=== PATIENT | female | born 1970 | race African-American/Black ===

== ENCOUNTER 2018-04-08 13:23 | Inpatient (IN) | payer MEDICAID ==
[~2018-04-08] VITALS: Ht 149.9 cm; Wt 51.4 kg
[2018-04-08 15:22] LABS: BASOPHILS % 1.1 % (0.0-2.0); EOSINOPHILS % 1.9 % (0.0-5.0); LYMPHOCYTES % 10.8 % (20.0-50.0); MEAN CORPUSCULAR VOLUME 96.3 fL (81.0-99.0); MEAN PLATELET VOLUME 7.4 fl (7.4-10.4); MONOCYTES % 7.6 % (2.0-8.0); NEUTROPHILS % 78.6 % (40.0-76.0); PLATELET 238 x1000/uL (130-400); RED BLOOD CELL COUNT 3.12 mill/uL (4.2-5.4)
[2018-04-08 15:28] LABS: CHLORIDE 110 mEq/L (98-107); INR 1.1; PROTHROMBIN TIME 11.1 sec (9.1-11.1)
[2018-04-08 15:34] LABS: CLARITY URINE CLOUDY (CLEAR); COLOR URINE DARK YELLOW (YELLOW); KETONES URINE NEGATIVE (NEGATIVE); LEUKOCYTE ESTERASE URINE 1+ (NEGATIVE); NITRITE URINE NEGATIVE (NEGATIVE); OCCULT BLOOD URINE 3+ (NEGATIVE); PROTEIN URINE 1+ (NEGATIVE); SPECIFIC GRAVITY URINE 1.016 (1.005-1.030)
[2018-04-08] MEDS ORDERED: LIDOCAINE HCL/PF 1% 10 MG/ML 5ML VIAL IJ ONE (16:15)
[2018-04-08] MEDS ORDERED: CEFTRIAXONE 1 G PREMIX 50 ML IV ONE (17:00)
[2018-04-08] MEDS ORDERED: CEFTRIAXONE 1 G PREMIX 50 ML IV SCH (18:15)
[2018-04-08] MEDS ORDERED: CLONIDINE 0.1MG TABLET PO PRN (18:15)
[2018-04-08] MEDS ORDERED: LORAZEPAM 2MG/ML CPJ IV PRN (18:15)
[2018-04-08] MEDS ORDERED: ONDANSETRON HCL 4MG/2ML INJ IV PRN (18:15)
[2018-04-08 23:11] LABS: CREATINE KINASE 52 IU/L (26-192); CREATINE KINASE MB FRACTION 1.6 ng/mL (0.5-3.6)
[2018-04-09] VITALS (7 sets, daily range): BP systolic 102–120; BP diastolic 33–54
[2018-04-09] MEDS ORDERED: SODIUM CHLORIDE 0.9% 1,000 ML IV SCH (03:55)
[2018-04-09] MEDS ORDERED: ENOXAPARIN 40MG/0.4ML SYR SUBCUT SCH (09:00)
[2018-04-09 09:28] LABS: *AMPHETAMINES SCREEN URINE NEGATIVE (NEGATIVE); *BARBITURATES SCREEN URINE NEGATIVE (NEGATIVE); *BENZODIAZEPINES SCREEN URINE NEGATIVE (NEGATIVE); *COCAINE SCREEN URINE NEGATIVE (NEGATIVE); CANNABINOID URINE SCREEN NEGATIVE (NEGATIVE); METHADONE URINE SCREEN NEGATIVE (NEGATIVE); OPIATES URINE SCREEN NEGATIVE (NEGATIVE); PHENCYCLIDINE URINE SCREEN NEGATIVE (NEGATIVE)
[2018-04-09 10:50] LABS: BASOPHILS % 0.8 % (0.0-2.0); EOSINOPHILS % 1.9 % (0.0-5.0); HEMATOCRIT. 21.4 % (36.0-48.0); HEMOGLOBIN. 7.2 g/dL (12.0-16.0); LYMPHOCYTES % 14.8 % (20.0-50.0); MEAN CORPUSCULAR HEMOGLOBIN 32.1 pg (28.0-32.0); MEAN CORPUSCULAR VOLUME 95.4 fL (81.0-99.0); MEAN PLATELET VOLUME 7.1 fl (7.4-10.4); NEUTROPHILS % 74.5 % (40.0-76.0); PLATELET 215 x1000/uL (130-400); RED BLOOD CELL COUNT 2.25 mill/uL (4.2-5.4); RED CELL DISTRIBUTION WIDTH 15.4 % (11.6-14.6)
[2018-04-09 11:23] LABS: CHLORIDE 111 mEq/L (98-107)
[2018-04-09 11:40] LABS: CREATINE KINASE 67 IU/L (26-192); PHOSPHORUS 2.7 mg/dL (2.5-4.9)
[2018-04-09 11:41] LABS: CREATINE KINASE MB FRACTION 1.2 ng/mL (0.5-3.6)
[2018-04-09] MEDS ORDERED: POTASSIUM CHLORIDE 20MEQ TABLET SR PO SCH (15:15)
[2018-04-09] MEDS: CEFTRIAXONE 1 G PREMIX 50 ML IV SCH (17:54)
[2018-04-09 18:07] LABS: TOTAL IRON BINDING CAPACITY 244 ug/dL (250-450)
[2018-04-09] MEDS: ACETAMINOPHEN 325MG TABLET PO PRN (20:54)
[2018-04-10] VITALS: BP 100/41
[2018-04-10 00:20] LABS: HEMOGLOBIN 7.1 g/dL (12.0-16.0)
[2018-04-10 00:24] LABS: HEMATOCRIT 20.6 % (36.0-48.0)
[2018-04-10 04:00] VITALS: BP 99/40
[2018-04-10 07:32] LABS: BASOPHILS % 1.1 % (0.0-2.0); EOSINOPHILS % 2.9 % (0.0-5.0); HEMATOCRIT. 22.3 % (36.0-48.0); HEMOGLOBIN. 7.5 g/dL (12.0-16.0); LYMPHOCYTES % 15.6 % (20.0-50.0); MEAN CORPUSCULAR VOLUME 95.1 fL (81.0-99.0); MEAN PLATELET VOLUME 6.8 fl (7.4-10.4); MONOCYTES % 10.1 % (2.0-8.0); NEUTROPHILS % 70.3 % (40.0-76.0); PLATELET 208 x1000/uL (130-400); RED BLOOD CELL COUNT 2.34 mill/uL (4.2-5.4); RED CELL DISTRIBUTION WIDTH 15.4 % (11.6-14.6)
[2018-04-10 07:41] LABS: CHLORIDE 113 mEq/L (98-107)
[2018-04-10 07:46] VITALS: BP 110/35
[2018-04-10] MEDS: ACETAMINOPHEN 325MG TABLET PO PRN (11:18)
[2018-04-10 11:37] VITALS: BP 126/43
[2018-04-10] MEDS ORDERED: FERROUS SULFATE 325MG TABLET PO SCH (12:15)
[2018-04-10] MEDS: DOCUSATE SODIUM 100MG CAPSULE PO SCH ×2 (12:53→17:18)
[2018-04-10] MEDS ORDERED: IRON SUCROSE COMPLEX 100 MG/5 ML ML IV SCH (14:00)
[2018-04-10 16:04] VITALS: BP 113/37
[2018-04-10 16:20] LABS: HEMATOCRIT 23.1 % (36.0-48.0); HEMOGLOBIN 7.8 g/dL (12.0-16.0)
[2018-04-10] MEDS: CEFTRIAXONE 1 G PREMIX 50 ML IV SCH (17:00)
[2018-04-10 20:00] VITALS: BP 110/40
[2018-04-10 23:04] LABS: HEMATOCRIT 23.7 % (36.0-48.0); HEMOGLOBIN 8.1 g/dL (12.0-16.0)
[2018-04-11] VITALS: BP 105/57
[2018-04-11 04:00] VITALS: BP 109/60
[2018-04-11 08:00] VITALS: BP 115/62
[2018-04-11] MEDS: DOCUSATE SODIUM 100MG CAPSULE PO SCH (09:26)
[2018-04-11 11:22] VITALS: BP 125/61
== END 2018-04-11 12:08 | disposition home or self-care (01) | DRG 463 ==
LOC: ER 13:23 → 5WST 17:16 → ENRESERV 23:33
PROVIDERS: ADMIT Internal Medicine Nephrology; ATTEND Internal Medicine Nephrology
PROC: 0CQ1XZZ Repair Lower Lip, External Approach (ICD-10-PCS; principal; 2018-04-08)
DX: N39.0 Urinary tract infection, site not specified (principal); I95.9 Hypotension, unspecified; E87.8 Other disorders of electrolyte and fluid balance, not elsewhere classified; I11.0 Hypertensive heart disease with heart failure; G90.8 Other disorders of autonomic nervous system; I50.30 Unspecified diastolic (congestive) heart failure; D63.8 Anemia in other chronic diseases classified elsewhere; S01.511A Laceration without foreign body of lip, initial encounter; W18.39XA Other fall on same level, initial encounter; Y93.89 Activity, other specified; Y92.89 Other specified places as the place of occurrence of the external cause; Y99.8 Other external cause status
CPT/HCPCS: 12011; 36415; 70551; 71045; 80048; 80061; 80305; 81025; 82550; 82553; 82728; 83540; 83550; 83735; 83880; 84100; 84443; 84484; 85014; 85018; 86850; 86900; 86920; 93005; 93306; 96365; 96366; 99285; J0696; J1650; J3490; J7050